=== PATIENT | male | born 1960 | race Caucasian/White ===

== ENCOUNTER → 2017-01-23 | Outpatient (CLI) | payer SELFPAY ==
[~2017-01-23] MED LIST: ADVIL200 MG PO; BENADRYL25 MG PO; BUSPIRONE HCL15 MG PO; LEVOTHROID (S125 MCG PO; LYRICA300 MG PO; PRINIVIL OR ZES10 MG PO; ULORIC80 MG PO; ULTRAM50 MG PO
== END | disposition disaster alternative care site (69) ==
LOC: GAMB 08:38
DX: F10.10 Alcohol abuse, uncomplicated (principal); R11.0 Nausea; Z79.899 Other long term (current) drug therapy
CPT/HCPCS: A0425; A0429

== ENCOUNTER 2017-01-25 13:50 | Observation (INO) | payer SELFPAY ==
[~2017-01-25] VITALS: Ht 180.3 cm; Wt 89.5 kg
--- NOTE | ~2017-01-25 | HP ---
PATIENT'S NAME: JACQUES WILL [facility] AGE: 56 Y [address] ROOM: [place] [address] LOCATION: [facility] [place] ADMIT DATE: 01/25/2017 History & Physical DISCHARGE DATE: FAMILY PHYSICIAN: PHYSICIAN, UNKNOWN ATTENDING PHYSICIAN: JUANITA CONTRERAS DATE OF SERVICE: CHIEF COMPLAINT: Alcohol intoxication, alcoholism. HISTORY OF PRESENT ILLNESS: This is a 56-year-old male with long history of struggles with alcoholism, who presents to the emergency room intoxicated. The patient had been reportedly drinking all day by himself as he normally does, but at some point decided that he was overdoing it and called [facility] and was brought to the emergency room for evaluation. Upon evaluation, the patient is diaphoretic and initially agitated and irritable, but otherwise he is alert, oriented, and coherent. The patient tells me that he has had long struggles with alcoholism, and that he wants to quit drinking, and he is not ready to decide working on ways to quit alcohol. The patient complains of nausea but has not vomited yet but also describes an overall feeling of anxiousness during my visitation. The patient otherwise denies any chest pain, shortness of breath, headache, dizziness, lightheadedness. No mention of diarrhea. No fever or chills. PAST MEDICAL HISTORY: Alcoholism, gout. FAMILY HISTORY: History of alcoholism in the father and diabetes in his father as well. SOCIAL HISTORY: The patient is a heavy alcohol user and a daily drinker but no previous admission for alcohol withdrawal. Chews tobacco, but no illicit drug use reported. 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 REVIEW OF SYSTEMS: All systems have been reviewed and were negative except as described in the HPI. PHYSICAL EXAMINATION: VITAL SIGNS: Blood pressure 151/89, pulse 102, respiratory rate 16, saturating 93% on room air. GENERAL: The patient is anxious appearing but alert, awake, and oriented x3 PATIENT'S NAME: JACQUES WILL [facility] AGE: 56 Y [address] ROOM: [place] [address] LOCATION: [facility] [place] ADMIT DATE: 01/25/2017 History & Physical DISCHARGE DATE: FAMILY PHYSICIAN: PHYSICIAN, UNKNOWN ATTENDING PHYSICIAN: JUANITA CONTRERAS but intoxicated appearing. HEENT: Dry mucosal membranes, but no scleral icterus, conjunctival pallor noted. CHEST: Clear to auscultation bilaterally. HEART: S1, S2, tachycardic, but regular rate and rhythm. ABDOMEN: Mild distention but soft and nontender. EXTREMITIES: Without edema. MUSCULOSKELETAL: No joint tenderness, effusion, or erythema noted. SKIN: Without rash or lesions. NEURO: The patient lethargic appearing overall but no gross neurologic abnormalities noted. LABORATORY DATA: Lab results reviewed and are mostly normal range except an alcohol level of 0.295. ASSESSMENT AND PLAN: 1. Acute alcohol intoxication. Blood alcohol level 0.295. We will admit the patient for observation and treat using alcohol and drug detox pathway order set. The patient will also be seen by case management in an attempt to help him get some resources on rehabbing going forward. The patient would benefit inpatient from rehab consult. The patient has been drinking daily for the past several years and has not had a previous admission with relation to alcohol withdrawal, but he is high risk for alcohol withdrawal currently. 2. Alcoholism. Management as above. 3. Elevated blood pressure. This is related to his alcohol intoxication. We will manage intoxication and continue to monitor. 4. Gout. This is worsened by his alcoholism, but no symptoms currently. 5. Deep venous thrombosis. We will use SCDs and ambulate. MD JOSSUE ARRIAGA/guerita /[id number] D: [id number] T: [id number] HISTORY & PHYSICAL
--- NOTE | ~2017-01-25 | ER ---
PATIENT'S NAME: JACQUES WILL [facility] AGE: 56 Y [address] ROOM: [address] [address] LOCATION: [facility] [place] ADMIT DATE: 01/25/2017 ER/Outpatient Report DISCHARGE DATE: FAMILY PHYSICIAN: PHYSICIAN, UNKNOWN ATTENDING PHYSICIAN: JUANIAT CONTRERAS Time of Patient's Arrival: 1350 hours. Time of Patient's Evaluation: 1355 hours. CHIEF COMPLAINT: Alcohol abuse. HISTORY OF PRESENT ILLNESS: This is a 56-year-old male who presents to the ER. He states that he is an alcoholic and has been on an alcohol binge for the past 2 days. He states he believes he drank approximately 2 pints of vodka today. 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 He states that he was evaluated at [facility] a couple of weeks ago and he states that he left there. He states that today he does feel nauseated. He has generalized pain from his neuropathy. He states he has not fallen. Denies any fever or chills. He states when he does detox from alcohol he does have seizures. The patient denies any other problems at this time. The patient states he has no suicidal idealizations. ALLERGIES: ALLOPURINOL. MEDICATIONS: Please see medication list in nurse's notes. PAST MEDICAL HISTORY: 1. Esophageal varices. 2. He has a history of seizures with detox. 3. Hypertension. 4. Depression. 5. Gout. 6. Neuropathy. PAST SURGERIES: Knee surgery. SOCIAL HISTORY: He is an alcoholic. He denies any drug use. PATIENT'S NAME: JACQUES WILL [facility] AGE: 56 Y [address] ROOM: [address] [address] LOCATION: [facility] [place] ADMIT DATE: 01/25/2017 ER/Outpatient Report DISCHARGE DATE: FAMILY PHYSICIAN: PHYSICIAN, UNKNOWN ATTENDING PHYSICIAN: JUANITA CONTRERAS REVIEW OF SYSTEMS: All systems were reviewed and were negative with the exception of those discussed in the HPI. PHYSICAL EXAMINATION: VITAL SIGNS: Weight 89.8 kg taken. Blood pressure 151/89, pulse 102, respirations 16, temperature 97.2 degrees tympanically, and saturations 93% on room air. Doreen Coma Score is 15. GENERAL: Alert, intoxicated male, in no acute distress. HEENT: Head: Normocephalic. He does display moist mucous membranes. Eyes: Pupils are equal and reactive to light. NECK: Supple. No lymphadenopathy. LUNGS: Clear to auscultation. HEART: Regular rate and rhythm. ABDOMEN: Soft. He has generalized tenderness in all 4 quadrants with palpation. No guarding. No rebound tenderness. EXTREMITIES: No clubbing or cyanosis. He has full range of motion of all limbs. SKIN: Warm, dry, and intact. NEURO: Cranial nerves 2 through 12 grossly intact. Gait is unsteady. LABORATORY DATA: CBC: White count is 6.2, hemoglobin is 14.8, platelets 275, and ANC is 3.1. CMS: Glucose is 110. Alcohol level was 0.295. Acetaminophen is less than 2.0. Salicylate is less than 2.8. Sodium 143, potassium 3.9. Urine drug screen was negative. EKG shows sinus rhythm. IMPRESSION: 1. Alcohol intoxication, wanting detox. 2. History of seizures with detox. 3. Hypertension. 4. History of depression. ASSESSMENT AND PLAN: We did start an IV here in the emergency room. We did give him a banana bag. The patient states that his primary care physician is Dr. Zazueta at [facility]; therefore, we called the Hospitalist Service and they will be admitting him for further care. The patient understands and agrees with care. JED CALVERT PA-C FOR CASIE KUMAR, DO ACShantanu/modl PATIENT'S NAME: JACQUES WILL [facility] AGE: 56 Y [address] ROOM: [place] [address] LOCATION: [facility] [place] ADMIT DATE: 01/25/2017 ER/Outpatient Report DISCHARGE DATE: FAMILY PHYSICIAN: PHYSICIAN, UNKNOWN ATTENDING PHYSICIAN: JUANITA CONTRERAS /[id number] d: t: 01/30/17 1216, OUTPATIENT REPORT
--- NOTE | ~2017-01-25 | DS ---
PATIENT'S NAME: JACQUES [facility] AGE: 56 Y [address] ROOM: [address] [address] [place] [facility] [place]: 01/25/2017 Discharge Summary DISCHARGE DATE: 01/27/2017 FAMILY PHYSICIAN: Blake Zazueta MD ATTENDING PHYSICIAN: Boston Bourgeois ATTENDING PHYSICIAN ON DAY OF DISCHARGE: Dr. Jacqui Galdamez. DISCHARGE DIAGNOSES: 1. Acute alcohol intoxication on top of chronic alcoholism. 2. Chronic pain syndrome. 3. Gout. DISCHARGE MEDICATIONS: 1. Benadryl 25 mg p.o. daily p.r.n. 2. Ibuprofen 4-800 mg p.o. q.6-8 h. p.r.n. 3. Lyrica 300 mg p.o. b.i.d. 4. Tramadol 100 mg p.o. b.i.d. p.r.n. 5. Febuxostat 80 mg p.o. q.i.d. PERTINENT LABORATORY DATA: Urine drug screen negative. CBC upon admission, white count 6.2, hemoglobin 14.8, hematocrit 41.8, and platelets 275. CMP was unremarkable. Electrolytes within normal limits. Alcohol level 0.295. HOSPITAL COURSE: Please refer to the admitting H and P dictated by Dr. Bourgeois. The patient was admitted and placed on the detox protocol. He was placed on observation status. Librium was initiated. The patient continued on the alcohol detox pathway. Lorazepam was administered according to the CIWA scoring. Vital signs remained stable. Ultimately, it was felt the patient could discharge to his home on 01/27/2017. The patient was requesting to be discharged with Ativan and clonidine of which we discussed was not safe. The patient ultimately was discharged to his own home on his previous home medicines. The patient was seen by Care Management as providers had visited with the patient concerning options for rehab and treatment for his alcoholism of which the patient was not interested in. The patient states he will continue to be active in AA and work with his sponsors. ELMO SARAH PA-C FOR JACQUI GALDAMEZ MD [facility]/modl PATIENT'S NAME: JACQUES WILL [facility] AGE: 56 Y [address] ROOM: [place] [address] [place] [facility] [place]: 01/25/2017 Discharge Summary DISCHARGE DATE: 01/27/2017 FAMILY PHYSICIAN: Blake Zazueta MD ATTENDING PHYSICIAN: Boston Bourgeois /[id number] CC: Blake Zazueta MD d: 01/27/17 2350 t: 02/01/17 1626, DISCHARGE SUMMARY
[2017-01-25 14:16] LABS: BASOPHIL # 0.1 K/uL (0.0-0.2); BASOPHIL % 1.1 %; EOSINOPHIL # 0.1 K/uL (0.0-0.5); EOSINOPHIL % 1.3 %; HEMATOCRIT 41.8 % (37.0-53.0); HEMOGLOBIN 14.8 g/dL (12.0-17.0); IMMATURE GRANULOCYTE % 0.3 %; LYMPHOCYTE # 2.3 K/uL (0.8-4.0); MCH 33.9 pg (27.0-34.0); MCHC 35.4 gm/dL (32.0-36.5); MCV 95.9 fl (83.0-98.0); MONOCYTE # 0.7 K/uL (0.0-1.0); MONOCYTE % 11.3 %; MPV 8.5 fl (9.4-12.4); NEUTROPHIL # (ANC) 3.1 K/uL (1.4-9.0); NRBC % 0 /100WBC (0-0.00); PLATELET COUNT 275 K/uL (150-450); RBC 4.36 M/uL (4.00-6.00); RDW-CV 13.4 % (11.9-14.6); WBC 6.2 K/uL (4.0-11.0)
[2017-01-25 14:37] LABS: ALBUMIN 3.8 gm/dL (3.5-5.0); ALK PHOS 69 IU/L (33-138); ALT 35 IU/L (12-78); BLOOD UREA NITROGEN 12 mg/dL (6-24); CALCIUM 8.2 mg/dL (8.5-10.5); CHLORIDE 110 mMol/L (96-110); CO2 19 mMol/L (22-32); SODIUM 143 mMol/L (135-145); TOTAL BILIRUBIN 0.3 mg/dL (0.0-1.5); TOTAL PROTEIN 7.5 g/dL (6.0-8.4)
[2017-01-25 14:38] LABS: ANION GAP 17.9 (10.0-19.0); AST 31 IU/L (10-40)
[2017-01-25 14:40] LABS: POTASSIUM 3.9 mMol/L (3.7-5.1)
[2017-01-25 16:10] LABS: AMPHETAMINE NEGATIVE (NEGATIVE); BARBITURATE NEGATIVE (NEGATIVE); COCAINE NEGATIVE (NEGATIVE); OPIATES NEGATIVE (NEGATIVE)
[2017-01-25] MEDS ORDERED: LYRICA300 MG PO (17:02)
[2017-01-25] MEDS ORDERED: ULTRAM50 MG PO (17:03)
[2017-01-25] MEDS ORDERED: ULORIC80 MG PO (17:03)
[2017-01-25] MEDS ORDERED: BENADRYL25 MG PO (17:07)
[2017-01-25] MEDS ORDERED: ADVIL200 MG PO (17:10)
--- NOTE | 2017-01-25 19:51 | NUR ---
A 56 yr old male admitted per [facility] from ER for alcohol detox. Patient received 1 liter of IV fluids (banana bag) in ER. Patient unsteady when ambulating. ETOH level was 0.290. Patient states drinking 2 pints of vodka today. Allergies to Allopurinol and Prednisone. Hx of esophageal varies and a hx of seizures with previous detox.
--- NOTE | 2017-01-25 20:00 | NUR ---
Significant Event: Patient admitted at 1635 from ER for alcohol detox. Patient alert and oriented and c/o a headache and nausea. Patient unsteady when up. IV fluids of NS at 125 ml/hr started and received Zofran 4 mg IV at 1723 for c/o nausea. CIWA score of 9 and patient received Ativan 1 mg orally at 1808. Up to the bathroom with assist to void. Bed alarm on at all times. Seizures precautions. Follow up: Hrly CIWA score until below 8.
--- NOTE | 2017-01-26 01:44 | NUR ---
SIGNIFICANT EVENT: Pt admitted for detox - VSS on RA. BA 0.295. Ativan x3 so far this shift for CIWA >8. PIV to L) hand infusing NS at 125. Regular diet. C/O headache. Nausea is mild - no meds for this since ER. Has neuropathy to L) hand and L) foot. 1PA. Bed alarms. Pleasant and cooperative with cares.
[2017-01-26 05:01] LABS: HEMATOCRIT 38.8 % (37.0-53.0); HEMOGLOBIN 13.5 g/dL (12.0-17.0); MCH 33.9 pg (27.0-34.0); MCHC 34.8 gm/dL (32.0-36.5); MCV 97.5 fl (83.0-98.0); MPV 8.8 fl (9.4-12.4); RBC 3.98 M/uL (4.00-6.00); RDW-CV 13.6 % (11.9-14.6); WBC 6.1 K/uL (4.0-11.0)
[2017-01-26 05:15] LABS: PHOSPHORUS 3.4 mg/dL (2.5-4.9)
[2017-01-26 05:21] LABS: MAGNESIUM 2.2 mg/dL (1.8-2.6)
--- NOTE | 2017-01-26 13:14 | NUR ---
(-)MST; WT IS UP FROM PREVIOUS ADMITS. PO INTAKE HAS BEEN GOOD. WILL ASSIST NEEDED.
--- NOTE | 2017-01-26 13:48 | NUR ---
Met with patient at bedside. Introduced myself and the role of the CM department. Patient states he has been an alcoholic for over 35 years. He states he does not need any information on inpatient or outpatient resources. He has been through them all and states the only thing he needs is to abstain from alcohol. He knows the meeting times at the [facility] and has two sponsors, one who he has already called. He wants no additional information on substance abuse. Will continue to follow and offer supports.
--- NOTE | 2017-01-26 14:54 | NUR ---
Significant Event: Alert/oriented x 3. BP hypertensive, other vitals stable. CIWA = 18. Ativan 2mg x2 this shift, last at 1417. Restarted on home medications. SBA to 1 assist for ambulation into bathroom, slightly unsteady on feet. Follow up: CIWA q4h.
[2017-01-26] MEDS ORDERED: LEVOTHROID (S125 MCG PO (15:00)
[2017-01-26] MEDS ORDERED: PRINIVIL OR ZES10 MG PO (15:01)
[2017-01-26] MEDS ORDERED: BUSPIRONE HCL15 MG PO (15:01)
--- NOTE | 2017-01-26 16:40 | NUR ---
Significant event: Patient is alert and oriented. VSS. ON room air. IV to left hand. Banana bag today. C/o headache no other pain. Has anxiety and tremors. CIWA has been 18 through the day. Up with SBA, due to some unsteadiness. No complaints of nausea, but states "if I eat solid food, it goes right through me". Encouraged patient to start with liquids and light food, such as toast, soup, etc. Pt will try that for supper. Pleasant and cooperative with cares.
--- NOTE | 2017-01-27 04:16 | NUR ---
Significant Event: PATIENT ALERT/ORIENTED X3, MOVES EXTRIMITES X4, AMBULATES IN ROOM, IV INFUSING VITAL SIGNS WNL, CIWA'S SCORE BETWEEN 16-1, SLEPT MOST OF THE NIGHT, VOIDS, NO BM Follow up:
[2017-01-27 05:26] LABS: HEMATOCRIT 39.1 % (37.0-53.0); HEMOGLOBIN 13.6 g/dL (12.0-17.0); MCH 33.7 pg (27.0-34.0); MCHC 34.8 gm/dL (32.0-36.5); MCV 96.8 fl (83.0-98.0); MPV 8.9 fl (9.4-12.4); RBC 4.04 M/uL (4.00-6.00); RDW-CV 13.1 % (11.9-14.6); WBC 5.2 K/uL (4.0-11.0)
[2017-01-27 05:55] LABS: MAGNESIUM 2.1 mg/dL (1.8-2.6); PHOSPHORUS 3.4 mg/dL (2.5-4.9)
--- NOTE | 2017-01-27 14:42 | NUR ---
DISCHARGE: D: ORDERS RECEIVED FOR THE PATIENT TO BE DISCHARGED TO HOME TODAY I: DISMISSAL INSTRUCTIONS WERE PREPARED BY THE VIRTUAL NURSE AND REVIEWED WITH THE PATIENT BY THE PRIMARY NURSE AT BEDSIDE. THE FOLLOWING INFOMATION WAS GIVEN TO THE PATIENT CHUCKY CLAYTON TEACHING SHEETS PROVIDED: ALCOHOLISM-GETTING HELP, ALCOHOL ADDICTION, AND SIGNS OF ALCOHOL ADDICTION (ALCOHOLISM). NO NEW PRESCRIPTIONS. R: THE PATIENT HAD NO QUESTIONS AT THIS TIME. P: THE ABOVE INFORMATION WAS SHARED WITH THE PRIMARY NURSE AND THE CHARGE NURSE THAT THE DISMISSAL EDUCATION WAS COMPLETED. THE PATIENT WAS DISCHARGED TO THE FRONT DOOR BY NURSING STAFF.
== END 2017-01-27 14:50 | disposition disaster alternative care site (69) ==
LOC: GMED 13:50 → GMSU 16:20
PROVIDERS: Emergency Medicine; ADMIT Internal Medicine
DX: F10.229 Alcohol dependence with intoxication, unspecified (principal); G89.4 Chronic pain syndrome; M10.9 Gout, unspecified; R03.0 Elevated blood-pressure reading, without diagnosis of hypertension; F17.220 Nicotine dependence, chewing tobacco, uncomplicated; Z79.899 Other long term (current) drug therapy
CPT/HCPCS: A9270; G0378; G0480; J2405; J3411; J7030